=== PATIENT | female | born 1995 | race Caucasian/White ===

== ENCOUNTER 2016-11-04 18:44 | Emergency (ER) | payer OTHER ==
[~2016-11-04] VITALS: Ht 165.1 cm; Wt 58.6 kg
[2016-11-04] MEDS ORDERED: PNV11TAB5 PO (19:08)
[2016-11-04] MEDS ORDERED: SODIUM CHLORIDE FLUSH 10ML SYR IVF ONE (19:30)
[2016-11-04 19:33] LABS: HEMATOCRIT 37.5 % (34.6-47.8); HEMOGLOBIN 12.4 g/dL (11.7-16.4); WHITE BLOOD COUNT 12.8 x10^3/uL (4.5-13.2)
[2016-11-04 19:44] LABS: ASPARTATE AMINO TRANSFERASE 9 U/L (15-37); BLOOD UREA NITROGEN 6 mg/dL (7-18)
[2016-11-04] MEDS ORDERED: CEFTRIAXONE PMX 1GM/50ML 50 ML ONE (20:22)
[2016-11-04] MEDS ORDERED: CEFTRIAXONE PMX 1GM/50ML 50 ML IV ONE (20:30)
[2016-11-04] MEDS ORDERED: SODIUM CHLORIDE 0.9% 1,000ML IVBOLUS ONE (20:30)
[2016-11-04 21:33] VITALS: BP 118/73
== END 2016-11-04 21:37 | disposition home or self-care (01) ==
LOC: ED 21:13
DX: O23.42 Unspecified infection of urinary tract in pregnancy, second trimester (principal); Z3A.20 20 weeks gestation of pregnancy
CPT/HCPCS: 36415; 80053; 81001; 83690; 85025; 87077; 87086; 87186; 96365; 99284; J0696; J7030

== ENCOUNTER 2018-02-14 20:23 | Emergency (ER) | payer MEDICAID ==
[~2018-02-14] VITALS: Ht 165.1 cm; Wt 61.5 kg
[~2018-02-14 20:23] MED LIST: DOCU-131 PO; IBUP-1222 PO; OXYC-302 PO; PNV11TAB5 PO
[2018-02-14 20:27] VITALS: BP 107/68
[2018-02-14] MEDS ORDERED: FLUORESCEIN/BENOXINATE 5 ML DROPS OP ONE (20:30)
== END 2018-02-14 21:56 | disposition home or self-care (01) ==
LOC: ED 21:00
DX: S05.02XA Injury of conjunctiva and corneal abrasion without foreign body, left eye, initial encounter (principal); X58.XXXA Exposure to other specified factors, initial encounter; Y93.89 Activity, other specified; Y92.89 Other specified places as the place of occurrence of the external cause; Y99.8 Other external cause status
CPT/HCPCS: 99283